=== PATIENT | male | born 1980 | race Caucasian/White ===

== ENCOUNTER 2017-08-12 09:39 | Emergency (ER) | payer BC, OTHER ==
[~2017-08-12] VITALS: Ht 165.1 cm; Wt 59.0 kg
[2017-08-12 09:57] LABS: HEMATOCRIT 44.9 % (42.0-52.0); HEMOGLOBIN 15.2 gm/dL (14.0-18.0); MCH 31.6 pg (26.0-34.0); MCHC 33.8 g/dL (28.0-37.0); MCV 93.6 fL (80.0-100.0); PLATELET COUNT 195 thou/uL (150-400); RDW 12.6 % (10.5-14.5)
[2017-08-12 10:00] LABS: MANUAL DIFF YES
[2017-08-12 10:11] LABS: CALCIUM 9.4 mg/dL (8.5-10.1); CREATININE 1.3 mg/dL (0.7-1.3)
[2017-08-12 10:16] LABS: ALBUMIN 4.4 g/dL (3.4-5.0); TOTAL BILIRUBIN 0.8 mg/dL (<0.1-1.0); TOTAL PROTEIN 7.3 g/dL (6.4-8.2)
[2017-08-12 10:23] LABS: POTASSIUM 2.8 mmol/L (3.5-5.1)
[2017-08-12 10:43] LABS: ABSOLUTE NEUTROPHILS 2.9 thou/uL (1.4-8.2); PLATELET ESTIMATE NORMAL; TOTAL CELL COUNT 100
[2017-08-12 10:52] LABS: URINE BILIRUBIN NEGATIVE (Negative); URINE BLOOD 2+ (Negative); URINE COLOR YELLOW; URINE GLUCOSE-RANDOM* NEGATIVE (Negative); URINE KETONES NEGATIVE (Negative); URINE LEUKOCYTES-REFLEX NEGATIVE (Negative); URINE PROTEIN (DIPSTICK) NEGATIVE (Negative); URINE UROBILINOGEN 0.2 E.U./dl (0.2-1.0)
[2017-08-12 11:10] LABS: CASTS None Seen /LPF (None Seen); CRYSTALS None Seen /LPF (None Seen); SQUAMOUS None Seen /LPF (0-3); URINE WBC-REFLEX 0-5 Rare /HPF (0-5)
[2017-08-12] MEDS ORDERED: NORCO 5-325 TA1 EACH PO (12:05)
[2017-08-12] MEDS ORDERED: SENNA-DOCUSATE1 EACH PO (12:05)
[2017-08-12] MEDS ORDERED: ZOFRAN ODT4 MG PO (12:05)
[2017-08-12] MEDS ORDERED: IBUPROFEN 600600 M1 PO (12:05)
[2017-08-12 12:44] VITALS: BP 117/70
== END 2017-08-12 12:55 | disposition home or self-care (01) ==
LOC: ER 09:39
PROVIDERS: Emergency Medicine
DX: N20.1 Calculus of ureter (principal); E87.6 Hypokalemia; F10.99 Alcohol use, unspecified with unspecified alcohol-induced disorder